=== PATIENT | female | born 2000 | race Caucasian/White ===

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

== ENCOUNTER 2023-03-19 11:10 | Emergency (ER) | payer OTHER, SELFPAY ==
[2023-03-19 11:26] VITALS: BP 108/69; PULSE 96; RESP 18; TEMP 36.6; O2SAT 98; BMI 19.1
--- NOTE | 2023-03-19 12:34 | DI.CT.S_ITS ---
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 Additional oblique axial 3.0 mm sections acquired through the pharynx. 3 mm thick coronal and sagittal reformats were generated. For radiation dose reduction, the following was used: automated exposure control. COMPARISON: None. FINDINGS: Image quality: This examination is limited by involuntary motion artifact. Lymph nodes: No enlarged lymph nodes seen throughout the neck. Vessels: Visualized vasculature appears patent. Neck spaces: Abnormal swelling can be seen within the region of the left tonsil compared to the right. Generalized low density can be seen within the left tonsil, yet without a herve rim enhancing abscess. There is mild mass effect seen upon airway. No mucosal lesions are seen. Glands: The parotid and submandibular glands appear normal. Thyroid gland demonstrates no significant abnormality. Miscellaneous: Visualized brain and orbits appear normal. Lung apices appear clear. Superficial soft tissues appear normal. Superior mediastinal calcification is noted, as on series 2 images 73 and 79. Bones: No suspicious bony lesions. Visualized sinuses and mastoids appear unremarkable. IMPRESSION: Abnormal soft tissue swelling seen involving the left tonsil, with likely internal phlegmon, yet without a drainable abscess identified. Superior mediastinal calcification is incidentally noted. Please correlate with potential prior granulomatous exposure. Dictated by: Jairo Butterfield M.D. on 03/19/2023 at 13:36 Approved by: Jairo Butterfield M.D. on 03/19/2023 at 13:38
[2023-03-19 13:40] LABS: Add Manual Diff / Slide Review NO; Basophils Absolute Auto 0 /uL (0-100); Basophils Percent Auto 0.1 % (0-2); Eosinophils Absolute Auto 0 /uL (0-450); Hematocrit 39.9 % (36-46); Hemoglobin 13.7 g/dL (12.0-16.0); Lymphocytes Absolute Auto 1300 /uL (1100-4500); Lymphocytes Percent Auto 6.9 % (25-40); Mean Corpuscular HGB Conc 34.3 % (30-36); Mean Corpuscular Hemoglobin 30.3 PG (26-34); Mean Corpuscular Volume 88.3 fL (80-100); Monocytes Absolute Auto 1200 /uL (0-900); Monocytes Percent Auto 6.3 % (3-14); Neutrophils Absolute Auto 16100 /uL (1500-7000); Neutrophils Percent Auto 86.7 % (50-75); Platelet Count 395 X10^3/uL (150-400); Red Blood Cell Count 4.52 X10^6/uL (4.0-5.2); Red Cell Distribution Width 11.7 % (11.6-14.8); White Blood Cell Count 18.6 X10^3/uL (4.5-11.0)
--- NOTE | 2023-03-19 13:52 | ED.URI ---
HPI - URI/Sore Throat <Michael Diaz PA-C - Last Filed: 03/19/23 19:02> General Chief Complaint: Upper Respiratory Symptoms Stated Complaint: Swollen tonsils, Difficulty talking Time Seen by Provider: 03/19/23 12:09 Source: patient Mode of arrival: Ambulatory History of Present Illness HPI Narrative: 22-year-old female with no reported past medical history presents to the ED with 3 weeks of sore throat. Patient states that she was given some antibiotics by her friend who is a doctor, her symptoms improved after the round of antibiotics. Patient states that her symptoms recrudesced after the initial round of antibiotics, she took another antibiotic that she got from a friend. Patient states she again felt better for a few days, but is having symptoms again. Patient does not recall what the antibiotics were. Patient complains of sore throat, pain with swallowing. Patient denies fever, chills, shortness of breath, chest pain. Patient is managing her secretions well. 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 Patient was swabbed for strep which was negative, culture still pending. Related Data Previous Rx's Medication Instructions Recorded ciprofloxacin HCl 500 mg tablet 500 mg PO Q12H #14 tabs 01/20/20 (Cipro) amoxicillin 875 mg-potassium 1 tab PO Q12H 10 days #20 tabs 03/19/23 clavulanate 125 mg tablet Allergies Allergy/AdvReac Type Severity Reaction Status Date / Time No Known Drug Allergies Allergy Verified 03/19/23 11:32 Review of Systems <Michael Diaz PA-C - Last Filed: 03/19/23 19:02> Review of Systems ROS Unobtainable: All systems reviewed & are unremarkable except as noted in HPI and below Constitutional Constitutional: Denies chills, Denies fatigue, Denies fever(s), Denies frequent falls, Denies lethargy and Denies weakness Eyes Eyes: Denies change in vision, Denies eye discharge, Denies irritation and Denies loss of vision ENT Ears, Nose, Mouth, and Throat: Reports as per HPI, Reports change in voice, Denies dizziness, Denies neck pain, Reports sore throat and Denies throat swelling Cardiovascular Cardiovascular: Denies chest pain, Denies irregular heart rhythm, Denies lightheadedness, Denies palpitations, Denies dyspnea, Denies dyspnea on exertion and Denies orthopnea Respiratory Respiratory: Denies cough, Denies dyspnea, Denies dyspnea on exertion and Denies wheezing Gastrointestinal Gastrointestinal: Denies abdominal pain, Denies change in bowel habits, Denies diarrhea, Denies nausea and Denies vomiting Genitourinary Genitourinary: Denies hematuria, Denies flank pain, Denies urinary incontinence and Denies urinary urgency Musculoskeletal Musculoskeletal: Denies back pain, Denies muscle weakness, Denies neck pain, Denies numbness and Denies tingling Integumentary/Breasts Skin/Breast: Denies pruritus, Denies erythema, Denies rash and Denies wounds Neurologic Neurologic: Denies behavioral changes, Denies confusion, Denies dizziness, Denies frequent falls, Denies loss of vision, Denies numbness, Denies tingling and Denies weakness Psychiatric Psychiatric: Denies anxiety, Denies behavioral changes, Denies confusion, Denies depression, Denies homicidal ideation and Denies suicidal ideation Endocrine Endocrine: Denies fatigue, Denies flushing and Denies palpitations Hematologic/Lymphatic Hematologic/Lymphatic: Denies easy bruising Allergic/Immunologic Allergic/Immunologic: Denies urticaria, Denies throat swelling and Denies wheezing Patient History <Michael Diaz PA-C - Last Filed: 03/19/23 19:02> Medical History Recurrent UTI UTI (urinary tract infection) Social History Smoking Status: Never smoker Smoking Status: Never smoker Substance Use Type: marijuana Exam <Michael Diaz PA-C - Last Filed: 03/19/23 19:02> Narrative Exam Narrative: Const General:?cooperative, healthy appearing and comfortable [facility] Head:?normal to inspection Ears:?hearing grossly normal bilaterally Nose:?external nose normal Face and sinus:?normal facial exam and sinuses nontender Mouth:?oral mucosae normal Throat:? Left-sided tonsillar swelling, erythema. There is bilateral tonsillar exudates. Airway is patent. Patient managing secretions well. Eyes General:?appearance normal, both eyes and all related structures Neck Neck:?normal visual inspection and no lymphadenopathy noted Resp Effort & Inspection:?normal respiratory effort Auscultation:?clear to auscultation bilaterally Cardio Rate:?regular rate Rhythm:?regular rhythm Neuro General:?patient alert, patient awake and patient oriented x3 Initial Vital Signs Initial Vital Signs: Vital Signs Temperature 97.8 F 03/19/23 11:26 Pulse Rate 96 H 03/19/23 11:26 Respiratory Rate 18 03/19/23 11:26 Blood Pressure 108/69 03/19/23 11:26 Pulse Oximetry 98 03/19/23 11:26 Oxygen Delivery Method Room Air 03/19/23 11:26 <Ana Rosado DO - Last Filed: 03/20/23 19:26> Initial Vital Signs Initial Vital Signs: Vital Signs Temperature 97.8 F 03/19/23 11:26 Pulse Rate 96 H 03/19/23 11:26 Respiratory Rate 18 03/19/23 11:26 Blood Pressure 108/69 03/19/23 11:26 Pulse Oximetry 98 03/19/23 11:26 Oxygen Delivery Method Room Air 03/19/23 11:26 Course <Michael Diaz PA-C - Last Filed: 03/19/23 19:02> Orders Ordered: Discontinued Medications Dexamethasone (Dexamethasone 10 Mg/Ml Vial) 10 mg IV NOW ONE Stop: 03/19/23 14:57 Last Admin: 03/19/23 15:28 Dose: 10 mg Documented By: RB Sodium Chloride (Normal Saline 0.9%) 1,000 mls @ 1,000 mls/hr IV BOLUS ONE Stop: 03/19/23 15:55 Last Infusion: 03/19/23 16:49 Dose: 0 mls/hr Documented By: Admin: 03/19/23 15:29 Dose: 1,000 mls/hr Documented By: RB Ampicillin Sodium/Sulbactam (Sodium 3 gm/ Sodium Chloride) 100 mls @ 200 mls/hr IV NOW ONE Stop: 03/19/23 14:57 Last Infusion: 03/19/23 16:13 Dose: 0 mls/hr Documented By: Admin: 03/19/23 15:25 Dose: 200 mls/hr Documented By: RB Lorazepam (Lorazepam 0.5 Mg Tablet) 1 mg PO NOW ONE Stop: 03/19/23 15:22 Last Admin: 03/19/23 15:28 Dose: 1 mg Documented By: RB Vital Signs Vital signs: Vital Signs - 8 hr 03/19/23 11:26 03/19/23 15:20 03/19/23 15:43 Temperature 97.8 F 98.0 F Pulse Rate 96 H 100 H 95 H Respiratory Rate 18 14 18 Blood Pressure 108/69 95/51 L 97/61 Pulse Oximetry 98 100 100 Oxygen Delivery Method Room Air Room Air Room Air 03/19/23 16:49 Temperature Pulse Rate 122 H Respiratory Rate 16 Blood Pressure 107/75 Pulse Oximetry 100 Oxygen Delivery Method Room Air <Ana Rosado DO - Last Filed: 03/20/23 19:26> Orders Ordered: Discontinued Medications Dexamethasone (Dexamethasone 10 Mg/Ml Vial) 10 mg IV NOW ONE Stop: 03/19/23 14:57 Last Admin: 03/19/23 15:28 Dose: 10 mg Documented By: RB Sodium Chloride (Normal Saline 0.9%) 1,000 mls @ 1,000 mls/hr IV BOLUS ONE Stop: 03/19/23 15:55 Last Infusion: 03/19/23 16:49 Dose: 0 mls/hr Documented By: Admin: 03/19/23 15:29 Dose: 1,000 mls/hr Documented By: RB Ampicillin Sodium/Sulbactam (Sodium 3 gm/ Sodium Chloride) 100 mls @ 200 mls/hr IV NOW ONE Stop: 03/19/23 14:57 Last Infusion: 03/19/23 16:13 Dose: 0 mls/hr Documented By: Admin: 03/19/23 15:25 Dose: 200 mls/hr Documented By: RB Lorazepam (Lorazepam 0.5 Mg Tablet) 1 mg PO NOW ONE Stop: 03/19/23 15:22 Last Admin: 03/19/23 15:28 Dose: 1 mg Documented By: RB Vital Signs Vital signs: Vital Signs - 8 hr 03/19/23 11:26 03/19/23 15:20 03/19/23 15:43 Temperature 97.8 F 98.0 F Pulse Rate 96 H 100 H 95 H Respiratory Rate 18 14 18 Blood Pressure 108/69 95/51 L 97/61 Pulse Oximetry 98 100 100 Oxygen Delivery Method Room Air Room Air Room Air 03/19/23 16:49 Temperature Pulse Rate 122 H Respiratory Rate 16 Blood Pressure 107/75 Pulse Oximetry 100 Oxygen Delivery Method Room Air MDM - URI/Sore Throat <Michael Diaz PA-C - Last Filed: 03/19/23 19:02> Lab Data 03/19/23 13:25 03/19/23 13:25 Labs: Lab Results 03/19/23 03/19/23 03/19/23 Range/Units 12:34 13:25 13:25 WBC 18.6 H (4.5-11.0) X10^3/uL RBC 4.52 (4.0-5.2) X10^6/uL Hgb 13.7 (12.0-16.0) g/dL Hct 39.9 (36-46) % MCV 88.3 (80-100) fL MCH 30.3 (26-34) PG MCHC 34.3 (30-36) % RDW 11.7 (11.6-14.8) % Plt Count 395 (150-400) X10^3/uL Neut % (Auto) 86.7 H (50-75) % Lymph % (Auto) 6.9 L (25-40) % Harlan % (Auto) 6.3 (3-14) % Eos % (Auto) 0.0 L (2-4) % Baso % (Auto) 0.1 (0-2) % Neut # (Auto) 15977 H (5094-8257) /uL Lymph # (Auto) 1300 (4141-5621) /uL Harlan # (Auto) 1200 H (0-900) /uL Eos # (Auto) 0 (0-450) /uL Baso # (Auto) 0 (0-100) /uL Sodium 137 (137-145) mmol/L Potassium 3.8 (3.4-5.1) mmol/L Chloride 101 (98-107) mmol/L Carbon Dioxide 25 (22-32) mmol/L BUN 8 (7-17) mg/dL Creatinine 0.65 (0.52-1.04) mg/dL Estimated GFR > 60 (>60) mL/min BUN/Creatinine Ratio 12.3 (6-22) Glucose 101 H (70-100) mg/dL Calcium 9.9 (8.4-10.2) mg/dL Total Bilirubin 0.9 (0.2-1.3) mg/dL AST 27 (14-36) IU/L ALT 21 (<35) IU/L Alkaline Phosphatase 88 (38-126) U/L Total Protein 8.4 H (6.3-8.2) g/dL Albumin 4.5 (3.5-5.0) g/dL Globulin 3.9 (1.7-4.1) g/dL Albumin/Globulin Ratio 1.2 (1.0-2.8) Monoscreen Negative (Negative) Group A Strep (PCR) (Negative) 03/19/23 Range/Units 13:25 WBC (4.5-11.0) X10^3/uL RBC (4.0-5.2) X10^6/uL Hgb (12.0-16.0) g/dL Hct (36-46) % MCV (80-100) fL MCH (26-34) PG MCHC (30-36) % RDW (11.6-14.8) % Plt Count (150-400) X10^3/uL Neut % (Auto) (50-75) % Lymph % (Auto) (25-40) % Harlan % (Auto) (3-14) % Eos % (Auto) (2-4) % Baso % (Auto) (0-2) % Neut # (Auto) (9440-5675) /uL Lymph # (Auto) (9313-7652) /uL Harlan # (Auto) (0-900) /uL Eos # (Auto) (0-450) /uL Baso # (Auto) (0-100) /uL Sodium (137-145) mmol/L Potassium (3.4-5.1) mmol/L Chloride (98-107) mmol/L Carbon Dioxide (22-32) mmol/L BUN (7-17) mg/dL Creatinine (0.52-1.04) mg/dL Estimated GFR (>60) mL/min BUN/Creatinine Ratio (6-22) Glucose (70-100) mg/dL Calcium (8.4-10.2) mg/dL Total Bilirubin (0.2-1.3) mg/dL AST (14-36) IU/L ALT (<35) IU/L Alkaline Phosphatase (38-126) U/L Total Protein (6.3-8.2) g/dL Albumin (3.5-5.0) g/dL Globulin (1.7-4.1) g/dL Albumin/Globulin Ratio (1.0-2.8) Monoscreen (Negative) Group A Strep (PCR) Negative (Negative) MDM Narrative Medical decision making narrative: 22-year-old female with no reported past medical history presents to the ED with 3 weeks of sore throat. Concern for strep pharyngitis versus mono versus peritonsillar abscess versus peritonsillar cellulitis versus other. Left tonsil appears significantly swollen compared to the right. Will obtain labs, CT neck, rapid strep, mono test. Strep negative. Harlan negative. WBC elevated to 18.5. Labs otherwise within normal limits. CT neck shows abnormal soft tissue swelling involving the left tonsil, with likely internal phlegmon, yet without a drainable abscess identified. Patient was given a dose of Unasyn by IV, IV fluids, dexamethasone. Given that patient was extremely anxious about the IV in the antibiotics, a dose of lorazepam was given. Patient's symptoms improved with medications. Recommend follow-up with ENT as soon as possible. Prescribed p.o. antibiotics to continue. ED return precautions were discussed with patient. Patient verbalized understanding. Medical records reviewed: Yes <Ana Rosado, DO - Last Filed: 03/20/23 19:26> Lab Data Labs: Lab Results 03/19/23 03/19/23 03/19/23 Range/Units 12:34 13:25 13:25 WBC 18.6 H (4.5-11.0) X10^3/uL RBC 4.52 (4.0-5.2) X10^6/uL Hgb 13.7 (12.0-16.0) g/dL Hct 39.9 (36-46) % MCV 88.3 (80-100) fL MCH 30.3 (26-34) PG MCHC 34.3 (30-36) % RDW 11.7 (11.6-14.8) % Plt Count 395 (150-400) X10^3/uL Neut % (Auto) 86.7 H (50-75) % Lymph % (Auto) 6.9 L (25-40) % Harlan % (Auto) 6.3 (3-14) % Eos % (Auto) 0.0 L (2-4) % Baso % (Auto) 0.1 (0-2) % Neut # (Auto) 21708 H (5109-9226) /uL Lymph # (Auto) 1300 (6660-1639) /uL Harlan # (Auto) 1200 H (0-900) /uL Eos # (Auto) 0 (0-450) /uL Baso # (Auto) 0 (0-100) /uL Sodium 137 (137-145) mmol/L Potassium 3.8 (3.4-5.1) mmol/L Chloride 101 (98-107) mmol/L Carbon Dioxide 25 (22-32) mmol/L BUN 8 (7-17) mg/dL Creatinine 0.65 (0.52-1.04) mg/dL Estimated GFR > 60 (>60) mL/min BUN/Creatinine Ratio 12.3 (6-22) Glucose 101 H (70-100) mg/dL Calcium 9.9 (8.4-10.2) mg/dL Total Bilirubin 0.9 (0.2-1.3) mg/dL AST 27 (14-36) IU/L ALT 21 (<35) IU/L Alkaline Phosphatase 88 (38-126) U/L Total Protein 8.4 H (6.3-8.2) g/dL Albumin 4.5 (3.5-5.0) g/dL Globulin 3.9 (1.7-4.1) g/dL Albumin/Globulin Ratio 1.2 (1.0-2.8) Monoscreen Negative (Negative) Group A Strep (PCR) (Negative) 03/19/23 Range/Units 13:25 WBC (4.5-11.0) X10^3/uL RBC (4.0-5.2) X10^6/uL Hgb (12.0-16.0) g/dL Hct (36-46) % MCV (80-100) fL MCH (26-34) PG MCHC (30-36) % RDW (11.6-14.8) % Plt Count (150-400) X10^3/uL Neut % (Auto) (50-75) % Lymph % (Auto) (25-40) % Harlan % (Auto) (3-14) % Eos % (Auto) (2-4) % Baso % (Auto) (0-2) % Neut # (Auto) (0442-5376) /uL Lymph # (Auto) (5158-7168) /uL Harlan # (Auto) (0-900) /uL Eos # (Auto) (0-450) /uL Baso # (Auto) (0-100) /uL Sodium (137-145) mmol/L Potassium (3.4-5.1) mmol/L Chloride (98-107) mmol/L Carbon Dioxide (22-32) mmol/L BUN (7-17) mg/dL Creatinine (0.52-1.04) mg/dL Estimated GFR (>60) mL/min BUN/Creatinine Ratio (6-22) Glucose (70-100) mg/dL Calcium (8.4-10.2) mg/dL Total Bilirubin (0.2-1.3) mg/dL AST (14-36) IU/L ALT (<35) IU/L Alkaline Phosphatase (38-126) U/L Total Protein (6.3-8.2) g/dL Albumin (3.5-5.0) g/dL Globulin (1.7-4.1) g/dL Albumin/Globulin Ratio (1.0-2.8) Monoscreen (Negative) Group A Strep (PCR) Negative (Negative) Discharge Plan Departure Patient Disposition: Home Clinical Impression: Phlegmonous tonsillitis Instructions: DI for Pharyngitis/Tonsillopharyngitis -- Adult Activity Restrictions/Additional Instructions: You were evaluated in the ED today for swelling and pain in the throat. The CT scan of your neck shows some abnormal soft tissue swelling which represents likely a phlegmon without a drainable abscess. You are being treated with antibiotics. Please take the antibiotics as prescribed. Please follow-up with [facility] at [phone] as soon as possible. It is important that you follow-up with ENT so they can monitor and treat the infection to resolution. Please return to the ED if you have worsening symptoms, fever, chills, trouble swallowing. Prescriptions: New amoxicillin-pot clavulanate 875-125 mg tablet 1 tab PO Q12H 10 Days Qty: 20 0RF No Action ciprofloxacin HCl [Cipro] 500 mg tablet 500 mg PO Q12H Qty: 14 0RF Rx Instructions: Take 1 tab by mouth every 12 hours for UTI. Referrals: Miscellaneous,Doctor, [Primary Care Provider] - Stand Alone Forms: Patient Portal/API <Ana Rosado DO - Last Filed: 03/20/23 19:26> Cosign ED Attending Sapnaature Attestation: I was immediately available in the department for consultation. Documentation has been reviewed. Case was discussed. Patient was seen very briefly handling secretions and airway without any issue, no muffled voice.
[2023-03-19 13:53] LABS: Strep Grp A by PCR Rapid Negative (Negative)
[2023-03-19 13:58] LABS: Alanine Aminotransferase 21 IU/L (<35); Albumin 4.5 g/dL (3.5-5.0); Albumin Globulin Ratio 1.2 (1.0-2.8); Alkaline Phosphatase 88 U/L (38-126); Aspartate Aminotransferase 27 IU/L (14-36); BUN Creatinine Ratio 12.3 (6-22); Bilirubin Total 0.9 mg/dL (0.2-1.3); Blood Urea Nitrogen 8 mg/dL (7-17); Calcium 9.9 mg/dL (8.4-10.2); Carbon Dioxide 25 mmol/L (22-32); Chloride 101 mmol/L (98-107); Estimated Glomerular Filt Rate > 60 mL/min (>60); Globulin 3.9 g/dL (1.7-4.1); Glucose 101 mg/dL (70-100); HEMOLYSIS < 15 (0-50); Potassium 3.8 mmol/L (3.4-5.1); Sodium 137 mmol/L (137-145); Total Protein 8.4 g/dL (6.3-8.2)
[2023-03-19 13:59] LABS: Monotest Negative (Negative)
[2023-03-19 15:20] VITALS: BP 95/51; PULSE 100; RESP 14; TEMP 36.7; O2SAT 100
[2023-03-19] MEDS: AMPICILLIN/SULBACTAM 3 GM 3 GM in SODIUM CHLORIDE 0.9% 100 ML IV (15:25)
[2023-03-19] MEDS: DEXAMETHASONE 10 MG/ML VIAL IV (15:28)
[2023-03-19] MEDS: LORazepam 0.5 MG TABLET 1 MG PO (15:28)
[2023-03-19] MEDS: SODIUM CHLORIDE 0.9% 1,000 ML 1000 ML IV (15:29)
[2023-03-19 15:43] VITALS: BP 97/61; PULSE 95; RESP 18; O2SAT 100
[2023-03-19 16:49] VITALS: BP 107/75; PULSE 122; RESP 16; O2SAT 100
== END 2023-03-19 17:07 | disposition home or self-care (01) ==
PROVIDERS: Emergency Provider Student in an Organized Health Care Education/Training Program
DX: J03.80 Acute tonsillitis due to other specified organisms (principal)
CPT/HCPCS: 36415; 70491; 80053; 85025; 86318; 87651; 96365; 96375; 99284; J0295; J1100; Q9967